=== PATIENT | male | born 1990 | race Caucasian/White ===

== ENCOUNTER 2016-10-27 14:38 | Emergency (ER) | payer SELFPAY ==
[2016-10-27 14:54] VITALS: BP 140/93
[2016-10-27] MEDS ORDERED: Lidocaine 1% 50 ML MDV SUBCUT STA (15:00)
[2016-10-27] MEDS ORDERED: Diphtheria,Pertussis(Acell),Tetanus Vaccine 0.5 ML SDV inactive IM ONE (15:00)
--- NOTE | 2016-10-27 15:05 | EDM.PDOC ---
ED HPI GENERAL MEDICAL PROBLEM - General Chief Complaint: Laceration Stated Complaint: Laceration Time Seen by Provider: 10/27/16 14:50 Source of Information: Reports: Patient, RN Notes Reviewed History Limitations: Reports: No Limitations - History of Present Illness INITIAL COMMENTS - FREE TEXT/NARRATIVE: 26 year old male presents to the ED with a laceration to his chin. He fell at work and hit his chin. He initially had neck pain which resolved. He had no loss of consciousness. No vision changes, nausea, vomiting. No loose teeth. No jaw pain. No nose bleed or pain. Last tetanus was more than 5 years ago. 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 [No Known Home Meds] 10/27/16 [History] Social & Family History - Tobacco Use Smoking Status *Q: Current Every Day Smoker Years of Tobacco use: 10 Packs/Tins Daily: 0.2 Used Tobacco, but Quit: No Second Hand Smoke Exposure: No - Caffeine Use Caffeine Use: Reports: Energy Drinks, Soda - Recreational Drug Use Recreational Drug Use: No ED ROS GENERAL - Review of Systems Review Of Systems: See Below HEENT: Denies: Dental Pain, Nosebleed, Nose Pain, Sinus Problem, Vision Change GI/Abdominal: Reports: No Symptoms. Denies: Nausea, Vomiting Skin: Reports: Wound ED EXAM, SKIN/RASH Exam: See Below Exam Limited By: No Limitations General Appearance: Alert, WD/WN, No Apparent Distress Eye Exam: Bilateral Eye: EOMI, PERRL Throat/Mouth: Normal Inspection, Normal Teeth, Other (swelling to upper lip. No mucousal lacerations. Teeth intact. ) Head: Atraumatic, Normocephalic Neck: Normal Inspection, Supple, Non-Tender, Full Range of Motion. No: Tender Midline Respiratory/Chest: No Respiratory Distress Cardiovascular: Regular Rate, Rhythm Skin: Warm, Dry, Normal Color, Other (large gaping laceration to chin. no bone exposure. See procedure notes ) ED SKIN PROCEDURES - Laceration/Wound Repair Face Lac/Wound length In cm: 3 (vertical laceration to chin) Appearance: Subcutaneous, Linear, Clean Anesthetic Type: Local Local Anesthesia - Lidocaine (Xylocaine): 1% Plain Local Anesthetic Volume: 3cc Skin Prep: Saline Exploration/Debridement/Repair: Wound Explored, in a Bloodless Field, Explored to Base, No Foreign Material Found Closed with: Sutures Suture Size: 4-0 # of Sutures: 6 Suture Type: Nylon, Interrupted, Simple Sterile Dressing Applied: Nurse Tetanus Status Addressed: Yes Complications: No Course - Vital Signs Last Recorded V/S: Last Vital Signs Temp 97.6 F 10/27/16 14:50 Pulse 71 10/27/16 14:50 Resp 19 10/27/16 14:50 BP 140/93 H 10/27/16 14:50 Pulse Ox 98 10/27/16 14:50 - Orders/Labs/Meds Orders: Active Orders 24 hr Category Date Time Status Vaccines to be Administered [RC] PER UNIT ROUTINE Care 10/27/16 15:00 Ordered Meds: Medications Discontinued Medications Generic Name Dose Route Start Last Admin Trade Name Freq PRN Reason Stop Dose Admin Diphtheria/Tetanus/Acell Pertussis 0.5 ml 10/27/16 15:00 10/27/16 15:25 Boostrix IM 10/27/16 15:01 0.5 ml .ONCE ONE Administration Lidocaine HCl 50 ml 10/27/16 15:00 10/27/16 15:26 Xylocaine 1% SUBCUT 10/27/16 15:01 50 ml NOW STA Administration Departure - Departure Time of Disposition: 15:56 Disposition: Home, Self-Care 01 Condition: Fair Clinical Impression: Laceration - Discharge Information Referrals: PCP,None [Primary Care Provider] - Forms: ED Department Discharge Additional Instructions: Laceration with suture repair Try to keep initial dressing in place for 24 hours After 24 hours, you can gently wash the wound with gentle soap and water Do not submerge the area in water until the sutures are out Apply antibiotic ointment and keep the wound covered for first 2-3 days then leave open to air Keep wound covered if there is a chance it can get dirty Sutures need to be removed in 6-7 days [facility] removes sutures for free. Their hours are 8am-6pm Monday through Monday. Return to clinic if signs or symptoms of infection arise, including increased redness, swelling, drainage, or fever Tylenol or Ibuprofen as needed for pain - My Orders Last 24 Hours: My Active Orders 10/27/16 15:00 Vaccines to be Administered [RC] PER UNIT ROUTINE - Assessment/Plan Last 24 Hours: My Active Orders 10/27/16 15:00 Vaccines to be Administered [RC] PER UNIT ROUTINE
== END 2016-10-27 16:05 | disposition home or self-care (01) ==
LOC: JD.ED 14:38
DX: S01.81XA Laceration without foreign body of other part of head, initial encounter (principal); F17.210 Nicotine dependence, cigarettes, uncomplicated; Z23 Encounter for immunization; W19.XXXA Unspecified fall, initial encounter; Y99.0 Civilian activity done for income or pay
CPT/HCPCS: 12013; 90471; 90715; 99282-25; 99283-25